=== PATIENT | male | born 1955 | race Caucasian/White ===

== ENCOUNTER 2020-06-16 09:53 | Emergency (ER) | payer MEDICAID ==
[~2020-06-16] VITALS: Ht 182.8 cm; Wt 68.0 kg
--- NOTE | 2020-06-16 10:41 | ED General ---
General Stated Complaint: DIZZYNESS History of Present Illness Date Seen by Provider: Jun 16, 2020 Time Seen by Provider: 10:36 Initial Comments 65-year-old male reports that he has "dizziness. That the dizziness seems to worsen when he stands up. Very vague in his symptoms. Patient reports that maybe felt warm but no real fever. No cough, shortness of breath, urinary symptoms. Patient symptoms did not worsen if he moves his head. He reports he was seems ago when he stands up. No nausea vomiting. Allergies and Home Medications Allergies Coded Allergies: No Known Drug Allergies (Unverified , 04/30/15) Patient Home Medication List Home Medication List Reviewed: Yes Review of Systems Review of Systems Constitutional: see HPI, dizziness EENTM: no symptoms reported Respiratory: No cough, No short of breath Cardiovascular: No chest pain, No palpitations Musculoskeletal: no symptoms reported Skin: no symptoms reported Psychiatric/Neurological: See HPI Past Qoemmzy-Oahbtz-Ybhjst Hx Past Med/Social Hx: Reviewed Nursing Past Med/Soc Hx Seasonal Allergies Seasonal Allergies: No Past Medical History High Cholesterol Diabetes, Non-Insulin dep Physical Exam Vital Signs Vital Signs - First Documented 06/16/20 10:30 Temp 36.3 Pulse 84 Resp 18 B/P (MAP) 130/9 (49) O2 Delivery Room Air Capillary Refill : Height, Weight, BMI Height: 6'2" Weight: 200lbs. oz. 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 as Tested Skin: Normal Color, Warm/Dry Progress/Results/Core Measures Suspected Sepsis SIRS Temperature: Pulse: Respiratory Rate: Laboratory Tests 06/16/20 11:06: White Blood Count 6.0 Blood Pressure / Mean: Laboratory Tests 06/16/20 11:06: Creatinine 1.15, Platelet Count 358, Total Bilirubin 1.4H Results/Orders Lab Results Laboratory Tests Test 12/8/20 11:06 06/16/20 12:33 06/16/20 12:43 Range/Units White Blood Count 6.0 4.3-11.0 10^3/uL Red Blood Count 5.14 4.30-5.52 10^6/uL Hemoglobin 14.7 13.3-17.7 g/dL Hematocrit 45 40-54 % Mean Corpuscular Volume 87 80-99 fL Mean Corpuscular Hemoglobin 29 25-34 pg Mean Corpuscular Hemoglobin Concent 33 32-36 g/dL Red Cell Distribution Width 13.8 10.0-14.5 % Platelet Count 358 130-400 10^3/uL Mean Platelet Volume 10.6 9.0-12.2 fL Immature Granulocyte % (Auto) 0 % Neutrophils (%) (Auto) 63 42-75 % Lymphocytes (%) (Auto) 27 12-44 % Monocytes (%) (Auto) 7 0-12 % Eosinophils (%) (Auto) 2 0-10 % Basophils (%) (Auto) 1 0-10 % Neutrophils # (Auto) 3.8 1.8-7.8 10^3/uL Lymphocytes # (Auto) 1.6 1.0-4.0 10^3/uL Monocytes # (Auto) 0.4 0.0-1.0 10^3/uL Eosinophils # (Auto) 0.1 0.0-0.3 10^3/uL Basophils # (Auto) 0.1 0.0-0.1 10^3/uL Immature Granulocyte # (Auto) 0.0 0.0-0.1 10^3/uL Carboxyhemoglobin 2.1 0.5-2.5 % Sodium Level 140 135-145 MMOL/L Potassium Level 3.9 3.6-5.0 MMOL/L Chloride Level 107 98-107 MMOL/L Carbon Dioxide Level 21 21-32 MMOL/L Anion Gap 12 5-14 MMOL/L Blood Urea Nitrogen 23 H 7-18 MG/DL Creatinine 1.15 0.60-1.30 MG/DL Estimat Glomerular Filtration Rate > 60 BUN/Creatinine Ratio 20 Glucose Level 92 70-105 MG/DL Calcium Level 8.6 8.5-10.1 MG/DL Corrected Calcium 9.0 8.5-10.1 MG/DL Magnesium Level 1.9 1.6-2.4 MG/DL Total Bilirubin 1.4 H 0.1-1.0 MG/DL Aspartate Amino Transf (AST/SGOT) 14 5-34 U/L Alanine Aminotransferase (ALT/SGPT) 8 0-55 U/L Alkaline Phosphatase 70 40-136 U/L Troponin I 0.032 H 0.042 H <0.028 NG/ML C-Reactive Protein High Sensitivity 0.20 0.00-0.50 MG/DL B-Type Natriuretic Peptide 85.0 <100.0 PG/ML Total Protein 6.2 L 6.4-8.2 GM/DL Albumin 3.5 3.2-4.5 GM/DL Serum Alcohol < 10 <10 MG/DL Urine Color YELLOW Urine Clarity CLEAR Urine pH 5.0 5-9 Urine Specific Dougherty 1.025 H 1.016-1.022 Urine Protein NEGATIVE NEGATIVE Urine Glucose (UA) NEGATIVE NEGATIVE Urine Ketones 1+ H NEGATIVE Urine Nitrite NEGATIVE NEGATIVE Urine Bilirubin 2+ H NEGATIVE Urine Urobilinogen 1.0 < = 1.0 MG/DL Urine Leukocyte Esterase NEGATIVE NEGATIVE Urine RBC (Auto) TRACE-L NEGATIVE Urine RBC 2-5 H /HPF Urine WBC NONE /HPF Urine Squamous Epithelial Cells 2-5 /HPF Urine Crystals NONE /LPF Urine Bacteria NEGATIVE /HPF Urine Casts PRESENT /LPF Urine Hyaline Casts 0-2 H /LPF Urine Mucus SMALL H /LPF Urine Culture Indicated NO My Orders Orders - CALDWELL,EMANUEL L DO Alcohol (06/16/20 10:42) BNP (06/16/20 10:42) Cbc With Automated Diff (06/16/20 10:42) Comprehensive Metabolic Panel (06/16/20 10:42) Hs C Reactive Protein (06/16/20 10:42) Magnesium (06/16/20 10:42) Troponin I (06/16/20 10:42) Ua Culture If Indicated (06/16/20 10:42) Ekg Tracing (06/16/20 10:42) Orthostatic Vital Signs (Adult (06/16/20 10:42) Carboxyhemoglobin (06/16/20 10:42) Ns Iv 1000 Ml (Sodium Chloride 0.9%) (06/16/20 10:59) Ed Iv/Invasive Line Start (06/16/20 10:59) Troponin I (06/16/20 12:03) Aspirin Chewable Tablet (Baby Aspirin Ch (06/16/20 13:30) Vital Signs/I&O 06/16/20 06/16/20 10:30 11:03 Temp 36.3 Pulse 84 66 80 116 Resp 18 B/P (MAP) 130/9 (49) 101/76 (84) 97/71 (80) 85/64 (71) O2 Delivery Room Air Capillary Refill : Progress Note : Time: 13:46 Progress Note Patient with proximal atrial fib. Patient when otherwise no acute findings on EKG. He does have a very minimal bump troponin likely from atrial fib and some mild dehydration. Discussed with Dr. Maki. We will start him on Eliquis 5 mg twice daily and metoprolol. Patient is to follow with Dr. Maki's office on outpatient basis. Patient is stable and will be discharged home Departure Impression Primary Impression: Dizziness Additional Impression: Atrial fibrillation Qualified Codes: I48.91 - Unspecified atrial fibrillation Disposition: 01 HOME, SELF-CARE Condition: Stable Departure-Patient Inst. Referrals: NO,LOCAL PHYSICIAN (PCP) Primary Care Physician SANA THOMPSON (Family) Primary Care Physician JACOB MENA MD Patient Instructions: Dizziness, Adult ED, Atrial Fibrillation Add. Discharge Instructions: Please call and schedule an appointment with the cardiology office for further evaluation and recheck in today symptoms Keep your appointment coming up with your primary care provider Return to the ER as needed Scripts Metoprolol Succinate (Metoprolol Succinate) 25 Mg Tab.er.24h 25 MG PO DAILY, #30 TAB Prov: EMANUEL CALDWELL DO 06/16/20 Apixaban (Eliquis) 5 Mg Tablet 5 MG PO BID for 30 Days, #72 TAB TAKE 2 TABLETS BID X 7 DAYS, THEN 1 TABLET BID Prov: CALDWELL,EMANUEL L DO 06/16/20 CALDWELLKANGEMANUEL L DO Jun 16, 2020 10:41
[2020-06-16] MEDS ORDERED: NS IV 1000 ML 1,000 ML IV STA (10:59)
[2020-06-16 11:03] VITALS: BP_SYST 101; BP_SYST 85; BP_SYST 97; BP_DIAS 64; BP_DIAS 71; BP_DIAS 76
[2020-06-16 11:11] LABS: BASOPHILS # (AUTO) 0.1 10^3/uL (0.0-0.1); BASOPHILS % (AUTO) 1 % (0-10); EOSINOPHILS # (AUTO) 0.1 10^3/uL (0.0-0.3); EOSINOPHILS % (AUTO) 2 % (0-10); HEMATOCRIT 45 % (40-54); HEMOGLOBIN 14.7 g/dL (13.3-17.7); LYMPHOCYTES # (AUTO) 1.6 10^3/uL (1.0-4.0); LYMPHOCYTES % (AUTO) 27 % (12-44); MEAN CORPUSCULAR HEMOGLOBIN 29 pg (25-34); MEAN CORPUSCULAR HGB CONC 33 g/dL (32-36); MEAN CORPUSCULAR VOLUME 87 fL (80-99); MEAN PLATELET VOLUME 10.6 fL (9.0-12.2); MONOCYTES # (AUTO) 0.4 10^3/uL (0.0-1.0); MONOCYTES % (AUTO) 7 % (0-12); NEUTROPHILS # (AUTO) 3.8 10^3/uL (1.8-7.8); NEUTROPHILS % (AUTO) 63 % (42-75); PLATELET COUNT 358 10^3/uL (130-400)
[2020-06-16 11:29] LABS: ALBUMIN 3.5 GM/DL (3.2-4.5); CHLORIDE 107 MMOL/L (98-107); POTASSIUM 3.9 MMOL/L (3.6-5.0); SODIUM 140 MMOL/L (135-145)
[2020-06-16 11:30] LABS: CALCIUM 8.6 MG/DL (8.5-10.1)
[2020-06-16 11:31] LABS: GLUCOSE 92 MG/DL (70-105); TOTAL PROTEIN 6.2 GM/DL (6.4-8.2)
[2020-06-16 11:32] LABS: CARBON DIOXIDE 21 MMOL/L (21-32)
[2020-06-16 11:33] LABS: BILIRUBIN,TOTAL 1.4 MG/DL (0.1-1.0)
[2020-06-16 11:34] LABS: ALKALINE PHOSPHATASE 70 U/L (40-136)
[2020-06-16 11:35] LABS: CREATININE SERUM 1.15 MG/DL (0.60-1.30); GFR ESTIMATED > 60
[2020-06-16 11:36] LABS: BUN/CREATININE RATIO 20
[2020-06-16 11:38] LABS: ALANINE AMINOTRANSFERASE 8 U/L (0-55); MAGNESIUM 1.9 MG/DL (1.6-2.4)
--- NOTE | 2020-06-16 12:47 | NUR ---
2ND TROPONIN DRAWN
[2020-06-16 12:51] LABS: CLARITY,URINE CLEAR; COLOR,URINE YELLOW; GLUCOSE, URINE (UA) NEGATIVE (NEGATIVE); KETONES,URINE 1+ (NEGATIVE); LEUKOCYTE ESTERASE ,URINE NEGATIVE (NEGATIVE); NITRITE,URINE NEGATIVE (NEGATIVE); PROTEIN,URINE NEGATIVE (NEGATIVE)
[2020-06-16 13:01] LABS: BACTERIA,URINE NEGATIVE /HPF; BILIRUBIN,URINE 2+ (NEGATIVE)
[2020-06-16 13:02] LABS: HYALINE CASTS, URINE 0-2 /LPF
[2020-06-16] MEDS ORDERED: ASPIRIN 81 MG CHEW (CHILDREN'S ASA) PO ONE (13:30)
[2020-06-16] MEDS ORDERED: APIX5TAB PO (13:50)
[2020-06-16] MEDS ORDERED: MTP25TSR PO (13:50)
--- NOTE | 2020-06-16 13:58 | NUR ---
ON DISCHARGE INFORMED PATIENT TO PICK MEDS UP AT [facility] DID NOT THINK HE COULD DO THAT WAS TOLD TO FOLLOW UP WITH DR MENA. DID NOT VOICE THAT HE WOULD.
[2020-06-16 14:04] VITALS: BP 121/99
== END 2020-06-16 14:04 | disposition home or self-care (01) ==
LOC: EDUNIT# 09:53 → ER 09:56
DX: R42 Dizziness and giddiness (principal); I48.91 Unspecified atrial fibrillation
CPT/HCPCS: 80053; 81000; 82375; 83735; 83880; 84484; 85025; 86141; G0480; 36415; 80320; 93005